=== PATIENT | male | born 1990 | race Caucasian/White ===

== ENCOUNTER 2016-07-29 16:48 | Emergency (ER) | payer MEDICAID ==
[2016-07-29 16:58] VITALS: BP 124/66
== END 2016-07-29 17:35 | disposition left against medical advice (07) ==
LOC: ER 16:48
DX: Z53.21 Procedure and treatment not carried out due to patient leaving prior to being seen by health care provider (principal)

== ENCOUNTER 2017-02-12 16:03 | Emergency (ER) | payer OTHER, MEDICAID ==
[2017-02-12] MEDS ORDERED: OXYCODONE-ACETAMINOPHEN 5-325 MG TABLET PO ONE (16:44)
--- NOTE | 2017-02-12 16:46 | ER Document Report ---
HPI - HPI Patient complains to provider of: Left hand injury Onset: Other - 4 days Onset/Duration: Waxing and waning Quality of pain: Achy Pain Level: 5 Context: Patient states that he was struck by a claw hammer 4 days ago to his left hand. Patient is right-hand dominant. Patient states that each morning his hand is not swollen but gradually through the day he has increased left hand swelling. Patient states his employer is requiring him to come for evaluation. Patient states he has been using his hand while at work despite his recent injury. Patient additionally reports recently getting tattoos to the left forearm. Associated Symptoms: Other - Left hand pain and swelling. denies: Fever Exacerbated by: Movement Relieved by: Denies Similar symptoms previously: No Recently seen / treated by doctor: No - ROS ROS below otherwise negative: Yes Systems Reviewed and Negative: Yes All other systems reviewed and negative - CONSTITUTIONAL Constitutional: DENIES: Fever, Chills - GASTROINTESTINAL Gastrointestinal: DENIES: Nausea - MUSCULOSKELETAL Musculoskeletal: REPORTS: Extremity pain, Swelling - DERM Skin Problems: Abrasion Past Medical History - General Information source: Patient - Social History Smoking Status: Current Every Day Smoker Cigarette use (# per day): Yes Smoking Education Provided: Yes Drug Abuse: None Occupation: Construction Family History: Reviewed & Not Pertinent, Other - asthma Pulmonary Medical History: Reports: Hx Tuberculosis Neurological Medical History: Reports: Hx Migraine, Hx Seizures Renal/ Medical History: Denies: Hx Peritoneal Dialysis GI Medical History: Reports: Hx Hepatitis - C Infectious Medical History: Reports: Hx Hepatitis - C Surgical Hx: Negative - Immunizations Immunizations up to date: Yes Hx Diphtheria, Pertussis, Tetanus Vaccination: Yes - pt states tetanus 2 years ago Vertical Provider Document - CONSTITUTIONAL Agree With Documented VS: Yes Exam Limitations: No Limitations General Appearance: WD/WN, No Apparent Distress - INFECTION CONTROL TRAVEL OUTSIDE OF THE [place] IN LAST 30 DAYS: No - HEENT HEENT: Atraumatic, Normocephalic - NECK Neck: Normal Inspection - RESPIRATORY Respiratory: No Respiratory Distress O2 Sat by Pulse Oximetry: 99 - CARDIOVASCULAR Pulses: Normal: Radial - MUSCULOSKELETAL/EXTREMETIES Musculoskeletal/Extremeties: MAEW, Tender - left hand tenderness, swelling to left 2/3rd MC, Edema, Eccymosis - NEURO Level of Consciousness: Awake, Alert, Appropriate Motor/Sensory: No Motor Deficit, No Sensory Deficit - DERM Integumentary: Warm, Dry Notes: abrasion to dorsal aspect of left hand, bruising to the dorsal aspect of left hand Patient with mild erythema extending from recent tattoos to left forearm Course - Vital Signs Vital signs: Temp Pulse Resp BP Pulse Ox 99.3 F 79 16 131/82 H 99 02/12/17 16:08 02/12/17 16:08 02/12/17 16:08 02/12/17 16:08 02/12/17 16:08 - Diagnostic Test Radiology reviewed: Image reviewed, Reports reviewed Discharge - Discharge Clinical Impression: Cellulitis of forearm, left Hand contusion Qualifiers: Encounter type: initial encounter Laterality: left Qualified Code(s): S60.222A - Contusion of left hand, initial encounter Condition: Stable Disposition: HOME, SELF-CARE Instructions: Tereso Wrap ([facility]), Cellulitis ([facility]), Cephalexin ([facility]), Contusion ( [facility]), Elevate the Injury ([facility]) Additional Instructions: Return immediately for any new or worsening symptoms Followup with your primary care provider, call tomorrow to make a followup appointment Follow-up with orthopedic hand specialist for any continued pain or problem Prescriptions: Cephalexin Monohydrate [Keflex 500 mg Capsule] 500 mg PO Q6H 5 Days capsule Naproxen [Naprosyn 250 Nmg Tablet] 1 tab PO BID #14 tablet Forms: Smoking Cessation Education, Return to Work Referrals: NATALIE RODRIGUEZ DO [ACTIVE STAFF] - Follow up as needed
--- NOTE | 2017-02-12 17:10 | RADIOLOGY REPORT (SQ) ---
EXAM DESCRIPTION: HAND LEFT 3 VIEWS COMPLETED DATE/TIME: 02/12/2017 4:55 pm REASON FOR STUDY: hand hit with hammer COMPARISON: None. EXAM PARAMETERS: NUMBER OF VIEWS: Three views. TECHNIQUE: AP, lateral and oblique radiographic images acquired of the left hand. LIMITATIONS: None. FINDINGS: MINERALIZATION: Normal. BONES: No acute fracture or dislocation. No worrisome bone lesions. JOINTS: No effusions. SOFT TISSUES: No soft tissue swelling. No foreign body. OTHER: No other significant finding. IMPRESSION: NEGATIVE STUDY OF THE LEFT HAND. NO RADIOGRAPHIC EVIDENCE OF ACUTE INJURY. TECHNICAL DOCUMENTATION: JOB ID: [id number] [employer]- All Rights Reserved
[2017-02-12] MEDS ORDERED: CEPHALEXIN 500 MG CAPSULE PO ONE (17:22)
[2017-02-12 17:45] VITALS: BP 138/76
== END 2017-02-12 17:49 | disposition home or self-care (01) ==
LOC: ER 16:03
DX: S60.222A Contusion of left hand, initial encounter (principal); W27.8XXA Contact with other nonpowered hand tool, initial encounter; Y99.0 Civilian activity done for income or pay; L03.114 Cellulitis of left upper limb; F17.210 Nicotine dependence, cigarettes, uncomplicated
CPT/HCPCS: 99283

== ENCOUNTER 2017-10-23 18:23 | Emergency (ER) | payer MEDICAID ==
[2017-10-23] MEDS ORDERED: RINGERS SOLUTION,LACTATED 1,000 ML IV ONE (19:29)
[2017-10-23] MEDS ORDERED: NORMAL SALINE 1000 ML 1,000 ML IV PRN (19:29)
--- NOTE | 2017-10-23 19:31 | ER Document Report ---
ED Medical Screen (RME) - General Chief Complaint: Nausea/Vomiting Stated Complaint: VOMITING/SYNCOPE Time Seen by Provider: 10/23/17 19:29 Notes: 26 years old male working the whole of yesterday in the hot sun temperature around 97, and work today until this afternoon, passed out therefore brought to the ED. TRAVEL OUTSIDE OF THE [place] IN LAST 30 DAYS: No - Related Data Allergies/Adverse Reactions: Penicillins Allergy (Verified 10/23/17 18:25) Past Medical History - Social History Frequency of alcohol use: None Drug Abuse: None Pulmonary Medical History: Reports: Hx Tuberculosis Neurological Medical History: Reports: Hx Migraine, Hx Seizures Renal/ Medical History: Denies: Hx Peritoneal Dialysis GI Medical History: Reports: Hx Hepatitis - C Infectious Medical History: Reports: Hx Hepatitis - C - Immunizations Immunizations up to date: Yes Hx Diphtheria, Pertussis, Tetanus Vaccination: Yes - pt states tetanus 2 years ago Physical Exam - Vital signs Vitals: Temp Pulse Resp BP Pulse Ox 98.3 F 84 18 151/77 H 97 10/23/17 18:32 10/23/17 18:32 10/23/17 18:32 10/23/17 18:32 10/23/17 18:32 Course - Vital Signs Vital signs: Temp Pulse Resp BP Pulse Ox 98.3 F 84 18 151/77 H 97 10/23/17 18:32 10/23/17 18:32 10/23/17 18:32 10/23/17 18:32 10/23/17 18:32
[2017-10-23 20:32] LABS: ABSOLUTE LYMPHOCYTES (AUTO) 2.4 10^3/uL (0.5-4.7); ABSOLUTE MONOCYTES (AUTO) 1.1 10^3/uL (0.1-1.4); ABSOLUTE NEUT (AUTO) 8.8 10^3/uL (1.7-8.2); BASOPHILS % (AUTO) 0.1 % (0-2); EOSINOPHILS % (AUTO) 0.2 % (0-6); HEMATOCRIT 51.1 % (37.9-51.0); HEMOGLOBIN 18.1 g/dL (13.5-17.0); LYMPHOCYTES % (AUTO) 19.6 % (13-45); MEAN CORPUSCULAR HEMOGLOBIN 30.9 pg (27.0-33.4); MEAN CORPUSCULAR HGB CONC 35.5 g/dL (32.0-36.0); MEAN CORPUSCULAR VOLUME 87 fl (80-97); MONOCYTES % (AUTO) 8.8 % (3-13); PLATELET COUNT 277 10^3/uL (150-450); RED BLOOD COUNT 5.86 10^6/uL (4.35-5.55); RED CELL DISTRIBUTION WIDTH 13.1 % (11.5-14.0); SEGMENTED NEUTROPHILS % (AUTO) 71.3 % (42-78); TOTAL CELLS COUNTED % (AUTO) 100 %; WHITE BLOOD COUNT 12.3 10^3/uL (4.0-10.5)
[2017-10-23 20:54] LABS: ALANINE AMINOTRANSFERASE 112 U/L (21-72); ALBUMIN 5.8 g/dL (3.5-5.0); ALKALINE PHOSPHATASE 82 U/L (38-126); ASPARTATE AMINO TRANSFERASE 71 U/L (17-59); BILIRUBIN,DIRECT 0.5 mg/dL (0.0-0.4); BILIRUBIN,TOTAL 0.9 mg/dL (0.2-1.3); BLOOD UREA NITROGEN 40 mg/dL (7-20); CALCIUM 10.4 mg/dL (8.4-10.2); CREATINE KINASE 748 U/L (55-170); GLUCOSE 113 mg/dL (75-110); TOTAL PROTEIN 10.5 g/dL (6.3-8.2)
[2017-10-23 20:59] LABS: CARBON DIOXIDE 28 mmol/L (22-30); CHLORIDE 89 mmol/L (98-107); SODIUM 137.5 mmol/L (137-145)
[2017-10-23 21:00] LABS: ANION GAP 21 (5-19)
--- NOTE | 2017-10-23 21:17 | EKG REPORT ---
SEVERITY:- OTHERWISE NORMAL ECG - SINUS RHYTHM ATRIAL PREMATURE COMPLEX : Confirmed by: Floyd Narvaez MD 23-Oct-2017 21:17:26
[2017-10-23] MEDS ORDERED: NORMAL SALINE 1000 ML 1,000 ML IV ONE ×2 (21:31→22:20)
[2017-10-23 21:34] LABS: APPEARANCE,URINE CLOUDY; BILIRUBIN,URINE NEGATIVE (NEGATIVE); GLUCOSE, URINE NEGATIVE (NEGATIVE); KETONES,URINE TRACE mg/dL (NEGATIVE); LEUKOCYTE ESTERASE,URINE NEGATIVE (NEGATIVE); NITRITE,URINE NEGATIVE (NEGATIVE); PROTEIN,URINE 100 mg/dL (NEGATIVE)
[2017-10-23 21:35] LABS: COLOR,URINE YELLOW
[2017-10-23 23:31] LABS: ALANINE AMINOTRANSFERASE 84 U/L (21-72); ALBUMIN 4.1 g/dL (3.5-5.0); ALKALINE PHOSPHATASE 58 U/L (38-126); ANION GAP 12 (5-19); ASPARTATE AMINO TRANSFERASE 49 U/L (17-59); BILIRUBIN,DIRECT 0.3 mg/dL (0.0-0.4); BILIRUBIN,TOTAL 0.8 mg/dL (0.2-1.3); BLOOD UREA NITROGEN 32 mg/dL (7-20); CALCIUM 8.4 mg/dL (8.4-10.2); CARBON DIOXIDE 26 mmol/L (22-30); CHLORIDE 100 mmol/L (98-107); CREATINE KINASE 567 U/L (55-170); GLUCOSE 107 mg/dL (75-110); POTASSIUM 3.4 mmol/L (3.6-5.0); SODIUM 137.5 mmol/L (137-145); TOTAL PROTEIN 7.1 g/dL (6.3-8.2)
[2017-10-23] MEDS ORDERED: ONDANSETRON ODT 4 MG TAB (6 TAB/ER DISP) PO PRN (23:57)
--- NOTE | 2017-10-24 00:01 | ER Document Report ---
ED General - General Chief Complaint: Nausea/Vomiting Stated Complaint: VOMITING/SYNCOPE Time Seen by Provider: 10/23/17 19:29 Mode of Arrival: Ambulatory Information source: Patient Notes: Patient with complaints of vomiting, muscle cramps and feeling dehydrated after working out in the heat all day. TRAVEL OUTSIDE OF THE [place] IN LAST 30 DAYS: No - Related Data Allergies/Adverse Reactions: Penicillins Allergy (Verified 10/23/17 18:25) Past Medical History - General Information source: Patient - Social History Smoking Status: Current Every Day Smoker Frequency of alcohol use: None Drug Abuse: None Family History: Reviewed & Not Pertinent, Other - asthma Patient has suicidal ideation: No Patient has homicidal ideation: No Pulmonary Medical History: Reports: Hx Tuberculosis Neurological Medical History: Reports: Hx Migraine, Hx Seizures Renal/ Medical History: Denies: Hx Peritoneal Dialysis GI Medical History: Reports: Hx Hepatitis - C Infectious Medical History: Reports: Hx Hepatitis - C Surgical Hx: Negative - Immunizations Immunizations up to date: Yes Hx Diphtheria, Pertussis, Tetanus Vaccination: Yes - pt states tetanus 2 years ago Review of Systems - Review of Systems Constitutional: Weakness EENT: No symptoms reported Cardiovascular: Lightheaded Respiratory: No symptoms reported Gastrointestinal: Vomiting Genitourinary: No symptoms reported Male Genitourinary: No symptoms reported Musculoskeletal: Muscle pain Skin: No symptoms reported Hematologic/Lymphatic: No symptoms reported Neurological/Psychological: No symptoms reported Physical Exam - Vital signs Vitals: Temp Pulse Resp BP Pulse Ox 98.3 F 84 18 151/77 H 97 10/23/17 18:32 10/23/17 18:32 10/23/17 18:32 10/23/17 18:32 10/23/17 18:32 - Notes Notes: PHYSICAL EXAMINATION: GENERAL: Moderately ill appearing, well-nourished and in no acute distress. HEAD: Atraumatic, normocephalic. EYES: Pupils equal round and reactive to light, extraocular movements intact, sclera anicteric, conjunctiva are normal. ENT: nares patent, oropharynx clear without exudates. Moist mucous membranes. NECK: Normal range of motion, supple without lymphadenopathy LUNGS: Breath sounds clear to auscultation bilaterally and equal. No wheezes rales or rhonchi. HEART: Regular rate and rhythm without murmurs ABDOMEN: Soft, nontender, normoactive bowel sounds. No guarding, no rebound. No masses appreciated. EXTREMITIES: Normal range of motion, no pitting or edema. No cyanosis. NEUROLOGICAL: No focal neurological deficits. Moves all extremities spontaneously and on command. PSYCH: Normal mood, normal affect. SKIN: Warm, Dry, normal turgor, no rashes or lesions noted. Course - Re-evaluation Re-evalutation: Initial workup reveals a CBC with a white blood count of 12.3, with left shift. Hemoglobin and hematocrit are unremarkable. Comprehensive metabolic panel with an anion gap of 21, BUN 40, creatinine 1.34, AST 71, ALT 112, CK 748. Urinalysis with proteinuria and trace ketones no nitrates or leukocyte Estrace. Patient reports that he has not had many p.o. fluids over the last couple of days as and has been out in the sun working. Will hydrate patient with total of 3 L and recheck a chemistry and CK. Patient reports significant improvement in his systems after IV fluid hydration. Repeat comprehensive metabolic panel much improved. Anion gap is 12 , BUN 32, creatinine 0.93, AST 49, ALT 84, CK 567. Patient has had no vomiting while in the department. Patient's vital signs remained stable. Patient will be discharged at this time, patient encouraged to stay hydrated if he has to be out in the sun, return for any worsening symptoms or development of fever. - Vital Signs Vital signs: Temp Pulse Resp BP Pulse Ox 98.3 F 96 18 116/54 L 96 10/23/17 20:34 10/24/17 00:13 10/24/17 00:13 10/24/17 00:13 10/24/17 00:13 - Laboratory Result Diagrams: 10/23/17 20:12 10/23/17 23:05 Laboratory results interpreted by me: 10/23/17 10/23/17 10/23/17 20:12 20:12 21:10 WBC 12.3 H RBC 5.86 H Hgb 18.1 H Hct 51.1 H Absolute Neutrophils 8.8 H Potassium Chloride 89 L Anion Gap 21 H BUN 40 H Creatinine 1.34 H Glucose 113 H Calcium 10.4 H Direct Bilirubin 0.5 H AST 71 H ALT 112 H Creatine Kinase 748 H Total Protein 10.5 H Albumin 5.8 H Urine Protein 100 H Urine Ketones TRACE H Urine Urobilinogen 2.0 H 10/23/17 23:05 WBC RBC Hgb Hct Absolute Neutrophils Potassium 3.4 L Chloride Anion Gap BUN 32 H Creatinine Glucose Calcium Direct Bilirubin AST ALT 84 H Creatine Kinase 567 H Total Protein Albumin Urine Protein Urine Ketones Urine Urobilinogen - EKG Interpretation by Me EKG shows normal: Sinus rhythm Rate: Normal Discharge - Discharge Clinical Impression: Acute kidney injury, Elevated CK, Dehydration Condition: Stable Disposition: HOME, SELF-CARE Additional Instructions: Dehydration Dehydration can result from vomiting or diarrhea, fever, or decreased intake of fluids. If severe, hospitalization and intravenous fluids may be required. Most cases are treated at home with fluids by mouth. For the next 24 hours, drink lots of clear fluids. In mild cases, this can be soda pop or sports drinks. For more severe dehydration, the doctor may recommend special fluids such as Pedialyte or Lytren. Try to get three liters ( 3 quarts) of fluid per day. If vomiting occurs, continue to drink the fluids frequently (every 15 to 20 minutes), but in small amounts (one or two ounces). Depending on the type of dehydration, the doctor may prescribe antinausea medicine or potassium replacements. Call the doctor or return for re-examination if you become progressively weak, vomit repeatedly, or have other new symptoms. Intravenous (IV) Fluids As part of your care today, you received intravenous (IV) fluids. IV fluids are administered to patients who are dehydrated or to those who have certain chemical (electrolyte) abnormalities that need correcting. Your lab work improved significantly after hydration with IV fluids. Please use the Zofran as needed for nausea. Please drink plenty of fluids over the next several days, water is best. Please try to stay hydrated while working out in the sun. Please return to the emergency department if you experience similar symptoms again. We are happy to reevaluate you. Prescriptions: Ondansetron [Zofran Odt 4 mg Tablet] 1 - 2 tab PO Q4H PRN #15 tab.rapdis PRN Reason: For Nausea/Vomiting Forms: Return to Work
[2017-10-24 00:14] VITALS: BP 116/54
== END 2017-10-24 00:14 | disposition home or self-care (01) ==
LOC: ER 18:23
DX: N17.9 Acute kidney failure, unspecified (principal); E86.0 Dehydration; R94.4 Abnormal results of kidney function studies; R11.2 Nausea with vomiting, unspecified; R53.1 Weakness; R25.2 Cramp and spasm; F17.200 Nicotine dependence, unspecified, uncomplicated; Z86.19 Personal history of other infectious and parasitic diseases
CPT/HCPCS: 93005; 99284; 96360; 96361; 36415; 82550; 85025; 80053; 81001; 93010; J7030; J7120

== ENCOUNTER 2018-01-24 13:48 | Emergency (ER) | payer SELFPAY ==
[2018-01-24 13:56] VITALS: BP 134/70
[2018-01-24] MEDS ORDERED: HYDROCODONE/ACETAMINOPHEN 10-325 MG TABLET PO ONE (14:35)
--- NOTE | 2018-01-24 14:47 | ER Document Report ---
HPI - HPI Patient complains to provider of: puncture wound Time Seen by Provider: 01/24/18 14:29 Pain Level: 2 Context: Patient is a 27-year-old male presenting to the emergency department for a puncture wound to the left thenar eminence. Patient states he was working on a roof using a nail gun when he attempted to nail a piece of wood to the roof and the nail gun went through the board and into his left thumb. Patient states that his boss was able to remove the nail and subsequent piece of wood that was connected to his hand and he immediately presented to the emergency room. Patient states his last tetanus was 2 years ago. Patient is denying any other injuries to the fluid falling off the roof any head, neck, back pain. Past medical history: Hepatitis C Medications: None Allergies: PCN Surgical history: None Patient admits to cigarette smoking, denies illicit drug use, denies EtOH use. Past Medical History - General Information source: Patient - Social History Smoking Status: Current Every Day Smoker Lives with: Family Family History: Reviewed & Not Pertinent, Other - asthma Pulmonary Medical History: Reports: Hx Tuberculosis Neurological Medical History: Reports: Hx Migraine, Hx Seizures Renal/ Medical History: Denies: Hx Peritoneal Dialysis GI Medical History: Reports: Hx Hepatitis - C Infectious Medical History: Reports: Hx Hepatitis - C - Immunizations Immunizations up to date: Yes Hx Diphtheria, Pertussis, Tetanus Vaccination: Yes - pt states tetanus 2 years ago Vertical Provider Document - CONSTITUTIONAL Agree With Documented VS: Yes Notes: GENERAL: Alert, interacts well. No acute distress. HEAD: Normocephalic, atraumatic. EYES: Pupils equal, round, and reactive to light. Extraocular movements intact. ENT: Oral mucosa moist, tongue midline. NECK: Full range of motion. Supple. Trachea midline. LUNGS: Clear to auscultation bilaterally, no wheezes, rales, or rhonchi. No respiratory distress. HEART: Regular rate and rhythm. No murmur ABDOMEN: Soft, non-tender. Non-distended. Bowel sounds present in all 4 quadrants. EXTREMITIES: Moves all 4 extremities spontaneously. No edema, normal radial and dorsalis pedis pulses bilaterally. No cyanosis. BACK: no cervical, thoracic, lumbar midline tenderness. No saddle anesthesia, normal distal neurovascular exam. NEUROLOGICAL: Alert and oriented x3. Normal speech. cranial nerves II through XII grossly intact PSYCH: Normal affect, normal mood. SKIN: Warm, dry, normal turgor. Patient has a small puncture wound on the lateral aspect below the MCP joint of the left thumb. Patient states pain is more so located in his thenar eminence which has minor swelling. Patient is able to abduct and adduct all 5 fingers on the left hand against resistance., Ulnar, medial, radial nerves are intact. - INFECTION CONTROL TRAVEL OUTSIDE OF THE [place] IN LAST 30 DAYS: No Course - Re-evaluation Re-evalutation: 01/24/18 15:49 Small foreign body seen on x-ray. Due to patient's puncture wound being so small I would have to numb the area and make a larger incision to explore the wound. Discussed with patient and prophylactic antibiotics, follow-up with orthopedics Dr. Rodriguez and close precautions with his primary care provider. Discussed foreign body will potentially remove itself from the patient's body. Discussed at length signs of infection and when to return to the emergency room. - Vital Signs Vital signs: Temp Pulse Resp BP Pulse Ox 98.4 F 71 18 134/70 H 96 01/24/18 13:53 01/24/18 13:53 01/24/18 13:53 01/24/18 13:53 01/24/18 13:53 Discharge - Discharge Clinical Impression: Puncture wound, Retained foreign body Condition: Stable Disposition: HOME, SELF-CARE Instructions: Puncture Wound ([facility]) Additional Instructions: As we discussed you have been seen and treated in the emergency department for a puncture wound and a retained foreign body. If I were to explore the wound I would do more damage than good at this point. Please take antibiotics as prescribed. Please return to the emergency room for any other concerning symptoms. Please follow-up with Dr. robertson with orthopedic hand specialist. Please also follow-up with your primary care provider. If you develop any signs of infection please return to the emergency room immediately. Prescriptions: Cephalexin Monohydrate [Keflex 500 mg Capsule] 500 mg PO BID 7 Days #14 capsule Referrals: NATALIE RODRIGUEZ DO [ACTIVE STAFF] - Follow up as needed
--- NOTE | 2018-01-24 15:29 | RADIOLOGY REPORT (SQ) ---
EXAM DESCRIPTION: HAND LEFT 3 VIEWS COMPLETED DATE/TIME: 01/24/2018 3:09 pm REASON FOR STUDY: nail gun accident COMPARISON: None. EXAM PARAMETERS: NUMBER OF VIEWS: Three views. TECHNIQUE: AP, lateral and oblique radiographic images acquired of the left hand. LIMITATIONS: None. FINDINGS: MINERALIZATION: Normal. BONES: No acute fracture or dislocation. No worrisome bone lesions. JOINTS: No effusions. SOFT TISSUES: There is a radio-opaque foreign body in relation to the 1st meta carpal. Is not metall ic. Possibly spur splinter or glass. OTHER: No other significant finding. IMPRESSION: Radio-opaque foreign body, not metallic, in relation to the 1st metacarpal. No fracture . TECHNICAL DOCUMENTATION: JOB ID: [id number] [employer]- All Rights Reserved Reading location - IP/workstation name: [email or web address]
== END 2018-01-24 16:01 | disposition home or self-care (01) ==
LOC: ER 13:48
DX: S61.032A Puncture wound without foreign body of left thumb without damage to nail, initial encounter (principal); F17.210 Nicotine dependence, cigarettes, uncomplicated; W45.0XXA Nail entering through skin, initial encounter; W29.4XXA Contact with nail gun, initial encounter; Z86.19 Personal history of other infectious and parasitic diseases
CPT/HCPCS: 99283

== ENCOUNTER 2018-09-11 09:32 | Emergency (ER) | payer MEDICAID ==
[2018-09-11 09:51] VITALS: BP 120/68
== END 2018-09-11 10:25 | disposition left against medical advice (07) ==
LOC: ER 09:32
DX: Z53.21 Procedure and treatment not carried out due to patient leaving prior to being seen by health care provider (principal)

== ENCOUNTER 2019-04-19 07:58 | Emergency (ER) | payer SELFPAY ==
[2019-04-19] MEDS ORDERED: CEFTRIAXONE 1 GM/D5W RTU 1 GM/50 ML RTUPB IV ONE (08:40)
[2019-04-19] MEDS ORDERED: DIPH/PERTUSS(ACELL)/TETANUS VAC/PF 0.5 ML SYR (>=10YO) IM ONE (09:22)
--- NOTE | 2019-04-19 09:23 | RADIOLOGY REPORT (SQ) ---
EXAM DESCRIPTION: HAND BILATERAL 3 VIEWS COMPLETED DATE/TIME: 04/19/2019 9:09 am REASON FOR STUDY: F/o fb, osteo.cellulitis in L hand,steel frag in R COMPARISON: Bilateral hand films 05/27/2012 EXAM PARAMETERS: NUMBER OF VIEWS: Three views. TECHNIQUE: AP, lateral and oblique radiographic images acquired of the right and left hand. LIMITATIONS: None. FINDINGS: MINERALIZATION: Normal. BONES: No acute fracture or dislocation. No worrisome bone lesions. JOINTS: No effusions. SOFT TISSUES: Left hand soft tissue swelling and lacerations along the left index and middle finger. No radiopaque foreign body in the right or left hand. OTHER: No other significant finding. IMPRESSION: Three views right hand unremarkable Left hand three views demonstrates a soft tissue defect in the left index finger and middle finger wi thout radiopaque foreign body or underlying aggressive bony demineralization. TECHNICAL DOCUMENTATION: JOB ID: [id number] [employer]- All Rights Reserved Reading location - IP/workstation name: [email or web address]
[2019-04-19 09:24] LABS: ABSOLUTE EOSINOPHILS # (AUTO) 0.2 10^3/uL (0.0-0.6); ABSOLUTE LYMPHOCYTES (AUTO) 2.2 10^3/uL (0.5-4.7); ABSOLUTE NEUT (AUTO) 9.2 10^3/uL (1.7-8.2); BASOPHILS % (AUTO) 0.2 % (0-2); EOSINOPHILS % (AUTO) 1.4 % (0-6); HEMATOCRIT 46.6 % (37.9-51.0); HEMOGLOBIN 16.5 g/dL (13.5-17.0); LYMPHOCYTES % (AUTO) 17.6 % (13-45); MEAN CORPUSCULAR HEMOGLOBIN 31.3 pg (27.0-33.4); MEAN CORPUSCULAR HGB CONC 35.5 g/dL (32.0-36.0); MEAN CORPUSCULAR VOLUME 88 fl (80-97); MONOCYTES % (AUTO) 7.9 % (3-13); PLATELET COUNT 292 10^3/uL (150-450); RED BLOOD COUNT 5.29 10^6/uL (4.35-5.55); RED CELL DISTRIBUTION WIDTH 13.5 % (11.5-14.0); SEGMENTED NEUTROPHILS % (AUTO) 72.9 % (42-78); TOTAL CELLS COUNTED % (AUTO) 100 %; WHITE BLOOD COUNT 12.6 10^3/uL (4.0-10.5)
--- NOTE | 2019-04-19 09:39 | ER Document Report ---
ED General - General Chief Complaint: Wound Infection Stated Complaint: POSSIBLE FINGER INFECTION Time Seen by Provider: 04/19/19 08:17 Primary Care Provider: SABIHA BROCK MD [COMMUNITY BASED STAFF] - Follow up as needed NATALIE RODRIGUEZ DO [ACTIVE STAFF] - Follow up as needed TRAVEL OUTSIDE OF THE [place] 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 Denies any fevers or chills, states pain is 5 out of 10, throbbing achy. Has not tried any omsl-hly-vxtkopk medications. Worse with time, nothing makes better. Patient is unsure when his last tetanus shot was. Patient states that he picked flecks of steel out of his right hand a couple of days ago. Denies history of MRSA. denies fevers, chills, chest pain,palpitations, shortness of breath, dyspnea, nausea, vomiting, diarrhea, abdominal pain, hematuria,blurred vision, double vision, loss of vision, speech changes, LH, dizziness, syncope, headaches, wheezing, ST, URI, neck pain, weakness, bowel or bladder dysfunction, saddle anesthesia, numbness or tingling in bilateral upper or lower extremities equally, muscle paralysis, weakness in bilateral upper or lower extremities equally or rash. - Related Data Allergies/Adverse Reactions: Penicillins Allergy (Verified 04/19/19 08:09) Past Medical History - General Information source: Patient - Social History Smoking Status: Current Every Day Smoker Chew tobacco use (# tins/day): No Frequency of alcohol use: None Drug Abuse: None Family History: Reviewed & Not Pertinent, Other - asthma Patient has suicidal ideation: No Patient has homicidal ideation: No Pulmonary Medical History: Reports: Hx Tuberculosis - carrier Neurological Medical History: Reports: Hx Migraine, Hx Seizures - at age of 4 Renal/ Medical History: Denies: Hx Peritoneal Dialysis GI Medical History: Reports: Hx Hepatitis - C Infectious Medical History: Reports: Hx Hepatitis - C - Immunizations Immunizations up to date: Yes Hx Diphtheria, Pertussis, Tetanus Vaccination: Yes - pt states tetanus 2 years ago Review of Systems - Review of Systems Constitutional: No symptoms reported EENT: No symptoms reported Cardiovascular: No symptoms reported Respiratory: No symptoms reported Gastrointestinal: No symptoms reported Genitourinary: No symptoms reported Male Genitourinary: No symptoms reported Musculoskeletal: No symptoms reported Skin: See HPI Hematologic/Lymphatic: No symptoms reported Neurological/Psychological: No symptoms reported Physical Exam - Vital signs Vitals: Temp Pulse Resp BP Pulse Ox 97.5 F 80 16 135/76 H 100 04/19/19 08:02 04/19/19 08:02 04/19/19 08:02 04/19/19 08:02 04/19/19 08:02 - Notes Notes: PHYSICAL EXAMINATION:reviewed vital signs by RN GENERAL: Well-appearing, well-nourished and in no acute distress. HEAD: Atraumatic, normocephalic. EYES: Pupils equal round and reactive to light, extraocular movements intact, sclera anicteric, conjunctiva are normal. ENT: Nares patent, oropharynx clear without exudates. Moist mucous membranes. NECK: Normal range of motion, supple without lymphadenopathy LUNGS: Breath sounds clear to auscultation bilaterally and equal. No wheezes rales or rhonchi. HEART: Regular rate and rhythm without murmurs ABDOMEN: Soft, nontender, nondistended abdomen. No guarding, no rebound. No masses appreciated. Musculoskeletal: Normal range of motion, no pitting or edema. No cyanosis. NEUROLOGICAL: Cranial nerves grossly intact. Normal speech, normal gait. Normal sensory, motor exams PSYCH: Normal mood, normal affect. SKIN: Warm, Dry, normal turgor, no rashes or lesions noted. Pain to left second phalange due to wound to left medial aspect of phalange approx 1cmx 0.5cm. Erythema to left index finger that extends partially up to right dorsal aspect of hand with noted streaking. no pain to wrist with flexion, extension, inversion, eversion of wrist. digits in right and left with full aprom. Guest Advisor + 2 BUE equally. Snuffbox tenderness negative on right and left. radial pulses + 2 BUE equally. Negative kanavels sign bilaterally. No open wounds or drainage from wrist. No vascular compromise.No body crepitus or focal area of TTP. no pain with opposition, flexion, extension, abduction and adduction on right or left hand. Motor and sensory function of ulnar, radial, medial nerves intact bilaterally and equally. strength 5/5 in BUE equally. Course - Re-evaluation Re-evalutation: 04/19/19 14:32 Afebrile vital stable no distress. Nurse's notes reviewed. CBC shows a very slight elevation with leukocytosis at 12.6, CMP negative for hepatic or renal dysfunction, electrolyte disturbances. Lactic acid was 0.8, unremarkable. X- ray negative for any foreign bodies fractures, no osteomyelitis seen on the right and left however his left hand does show some soft tissue defect from woun d on left medial aspect of left index finger. Patient's tetanus has been updated. Patient was given 1 g Rocephin IV. Patient does not appear to have any signs or symptoms of tenosynovitis, negative Kyra sign bilaterally. Area of erythema to dorsal aspect of left hand marked tendon dated. Advised patient that if redness extends as marked area by 1 cm to return to the emergency room immediately for further evaluation. Patient will be discharged with Keflex and Bactrim for 10-day therapy as well as naproxen for pain control. Advised apply heat 20 minutes on 20 minutes off several times a day. after performing a Medical Screening Examination, I estimate there is LOW risk for OPEN FRACTURE, COMPARTMENT SYNDROME, TENDON RUPTURE, ACUTE NEUROVASCULAR INJURY, or RETAINED FOREIGN BODY, thus I consider the discharge disposition reasonable. Also, there is no evidence or peritonitis, sepsis, or toxicity. I have reevaluated this patient multiple times and no significant life threatening changes are noted. The patient and I have discussed the diagnosis and risks, and we agree with discharging home with close follow-up with the understanding that symptoms and presentations can change. We also discussed returning to the Emergency Department immediately if new or worsening symptoms occur. We have discussed the symptoms which are most concerning (e.g., changing or worsening pain, fever, numbness, weakness, cool or painful digits) that necessitate immediate return. - Vital Signs Vital signs: Temp Pulse Resp BP Pulse Ox 98.6 F 74 14 123/77 96 04/19/19 11:05 04/19/19 11:05 04/19/19 11:05 04/19/19 11:05 04/19/19 11:05 - Laboratory Result Diagrams: 04/19/19 09:08 04/19/19 09:08 Laboratory results interpreted by me: 04/19/19 04/19/19 09:08 09:08 WBC 12.6 H Absolute Neuts (auto) 9.2 H Total Protein 8.3 H Discharge - Discharge Clinical Impression: Cellulitis of hand Condition: Stable Disposition: HOME, SELF-CARE Instructions: Laceration Care (OM), Prophylactic Antibiotic (OM), Soap Cleansing (OM), Tetanus Immunization Given ([facility]) Additional Instructions: X-ray of your bilateral hands were negative for any foreign body or bone infection. Your labs looked normal. You were given a tetanus immunization today. you were We will start you on antibiotic therapy, please take Bactrim and Keflex twice a day for 10 days to help with infection. Alternate between Tylenol and naproxen for pain control. If redness extends out of marked area, please return to the emergency room. Apply heat 20 minutes on 20 minutes off several times a day to help with infection. Work note has been given until Friday. If your symptoms become worse such as high fever, worsening pain, redness extending out of marked area please return to the emergency room for further management of your symptoms. Prescriptions: Sulfamethoxazole/Trimethoprim [Bactrim Ds Tablet] 1 each PO BID #20 tablet Cephalexin Monohydrate [Keflex 500 mg Capsule] 500 mg PO BID #20 capsule Naproxen 500 mg PO BID #10 tablet Forms: Return to Work Referrals: SABIHA BROCK MD [COMMUNITY BASED STAFF] - Follow up as needed NATALIE RODRIGUEZ DO [ACTIVE STAFF] - Follow up as needed
[2019-04-19 10:15] LABS: ALBUMIN 4.7 g/dL (3.5-5.0); ALKALINE PHOSPHATASE 73 U/L (38-126); ANION GAP 10 (5-19); ASPARTATE AMINO TRANSFERASE 36 U/L (17-59); BILIRUBIN,DIRECT 0.1 mg/dL (0.0-0.4); BILIRUBIN,TOTAL 1.3 mg/dL (0.2-1.3); BLOOD UREA NITROGEN 16 mg/dL (7-20); CALCIUM 9.9 mg/dL (8.4-10.2); CARBON DIOXIDE 27 mmol/L (22-30); CHLORIDE 102 mmol/L (98-107); GLUCOSE 100 mg/dL (75-110); POTASSIUM 4.3 mmol/L (3.6-5.0); TOTAL PROTEIN 8.3 g/dL (6.3-8.2)
[2019-04-19 11:08] VITALS: BP 123/77
== END 2019-04-19 11:08 | disposition home or self-care (01) ==
LOC: ER 07:58
DX: L03.114 Cellulitis of left upper limb (principal); M79.89 Other specified soft tissue disorders; Z23 Encounter for immunization; Z86.19 Personal history of other infectious and parasitic diseases
CPT/HCPCS: 36415; 87040; 83605; 85025; 80053; 73130; 90715; J0696

== ENCOUNTER 2019-05-02 15:19 | Emergency (ER) | payer SELFPAY ==
--- NOTE | 2019-05-02 16:21 | ER Document Report ---
ED Medical Screen (RME) - General Chief Complaint: Headache Stated Complaint: SEEING THINGS/LOSS OF FEELING IN HANDS/TIRED/HEADA Time Seen by Provider: 05/02/19 16:18 Mode of Arrival: Ambulatory Information source: Patient Notes: 28-year-old male patient presenting with a multitude of complaints today. Patient reports over the last 2 weeks he has had a severe headache, numbness in his fingers, altered mental status at times, and confusion. Patient does report a recent abscess on his finger that he came to the emergency department for but did not have his antibiotics filled for. He reports intermittent fevers over the last 2 weeks as well. Patient alert, oriented, answering all questions appropriately, no focal neurological deficits noted. I have greeted and performed a rapid initial assessment of this patient. A comprehensive ED assessment and evaluation of the patient, analysis of test results and completion of the medical decision making process will be conducted by additional ED providers. I have specifically instructed the patient or family members with the patient to immediately return to any nursing staff should anything change in the patient's condition or with their chief complaint. TRAVEL OUTSIDE OF THE [place] IN LAST 30 DAYS: No - Related Data Allergies/Adverse Reactions: Penicillins Allergy (Verified 04/19/19 08:09) Past Medical History Pulmonary Medical History: Reports: Hx Tuberculosis - carrier Neurological Medical History: Reports: Hx Migraine, Hx Seizures - at age of 4 Renal/ Medical History: Denies: Hx Peritoneal Dialysis GI Medical History: Reports: Hx Hepatitis - C Infectious Medical History: Reports: Hx Hepatitis - C - Immunizations Immunizations up to date: Yes Hx Diphtheria, Pertussis, Tetanus Vaccination: Yes - pt states tetanus 2 years ago Physical Exam - Vital signs Vitals: Temp Pulse Resp BP Pulse Ox 98.1 F 80 16 131/83 H 97 05/02/19 15:59 05/02/19 15:59 05/02/19 15:59 05/02/19 15:59 05/02/19 15:59 Course - Vital Signs Vital signs: Temp Pulse Resp BP Pulse Ox 98.1 F 80 16 131/83 H 97 05/02/19 15:59 05/02/19 15:59 05/02/19 15:59 05/02/19 15:59 05/02/19 15:59
[2019-05-02 17:13] LABS: APPEARANCE,URINE CLEAR; BILIRUBIN,URINE NEGATIVE (NEGATIVE); COLOR,URINE YELLOW; GLUCOSE, URINE NEGATIVE (NEGATIVE); KETONES,URINE NEGATIVE (NEGATIVE); LEUKOCYTE ESTERASE,URINE NEGATIVE (NEGATIVE); NITRITE,URINE NEGATIVE (NEGATIVE); PROTEIN,URINE NEGATIVE (NEGATIVE); URINE SPECIFIC GRAVITY 1.025
[2019-05-02 17:15] LABS: ABSOLUTE BASOPHILS # (AUTO) 0.1 10^3/uL (0.0-0.2); ABSOLUTE EOSINOPHILS # (AUTO) 0.2 10^3/uL (0.0-0.6); ABSOLUTE LYMPHOCYTES (AUTO) 3.1 10^3/uL (0.5-4.7); ABSOLUTE MONOCYTES (AUTO) 0.5 10^3/uL (0.1-1.4); ABSOLUTE NEUT (AUTO) 4.2 10^3/uL (1.7-8.2); BASOPHILS % (AUTO) 0.7 % (0-2); EOSINOPHILS % (AUTO) 2.9 % (0-6); HEMATOCRIT 42.6 % (37.9-51.0); HEMOGLOBIN 15.4 g/dL (13.5-17.0); LYMPHOCYTES % (AUTO) 38.1 % (13-45); MEAN CORPUSCULAR HEMOGLOBIN 32.2 pg (27.0-33.4); MEAN CORPUSCULAR HGB CONC 36.2 g/dL (32.0-36.0); MEAN CORPUSCULAR VOLUME 89 fl (80-97); MONOCYTES % (AUTO) 6.4 % (3-13); PLATELET COUNT 293 10^3/uL (150-450); RED BLOOD COUNT 4.79 10^6/uL (4.35-5.55); RED CELL DISTRIBUTION WIDTH 13.5 % (11.5-14.0); SEGMENTED NEUTROPHILS % (AUTO) 51.9 % (42-78); TOTAL CELLS COUNTED % (AUTO) 100 %; WHITE BLOOD COUNT 8.2 10^3/uL (4.0-10.5)
[2019-05-02 17:30] LABS: URINE AMPHETAMINES SCREEN NEGATIVE; URINE BARBITURATES SCREEN NEGATIVE; URINE BENZODIAZEPINES SCREEN NEGATIVE; URINE COCAINE SCREEN NEGATIVE; URINE METHADONE SCREEN NEGATIVE; URINE PHENCYCLIDINE SCREEN NEGATIVE
[2019-05-02 17:34] LABS: ALBUMIN 4.2 g/dL (3.5-5.0); ALKALINE PHOSPHATASE 52 U/L (38-126); ANION GAP 7 (5-19); ASPARTATE AMINO TRANSFERASE 48 U/L (17-59); BILIRUBIN,TOTAL 0.2 mg/dL (0.2-1.3); BLOOD UREA NITROGEN 17 mg/dL (7-20); CALCIUM 9.4 mg/dL (8.4-10.2); CARBON DIOXIDE 30 mmol/L (22-30); CHLORIDE 102 mmol/L (98-107); GLUCOSE 90 mg/dL (75-110); POTASSIUM 4.4 mmol/L (3.6-5.0); TOTAL PROTEIN 7.3 g/dL (6.3-8.2)
[2019-05-02 17:38] LABS: URINE MARIJUANA (THC) SCREEN UNCONFIRMED POSITIVE
--- NOTE | 2019-05-02 17:39 | RADIOLOGY REPORT (SQ) ---
EXAM DESCRIPTION: CT HEAD WITHOUT COMPLETED DATE/TIME: 05/02/2019 4:07 pm REASON FOR STUDY: confusion/headaches COMPARISON: None. TECHNIQUE: Axial images acquired through the brain without intravenous contrast. Images reviewed wi th bone, brain and subdural windows. Images stored on PACS. All CT scanners at this facility use dose modulation, iterative reconstruction, and/or weight based d osing when appropriate to reduce radiation dose to as low as reasonably achievable (ALARA). [facility]: Dose Right [facility]: CareDose [facility]: Dose Right [facility]: Teradose 4D [facility]: [facility] RADIATION DOSE: CT Rad equipment meets quality standard of care and radiation dose reduction techniq ues were employed. CTDIvol: 53.2 mGy. DLP: 1070 mGy-cm. mGy. LIMITATIONS: None. FINDINGS: VENTRICLES: Normal size and contour. CEREBRUM: No masses. No hemorrhage. No midline shift. No evidence for acute infarction. Normal gra y/white matter differentiation. No areas of low density in the white matter. CEREBELLUM: No masses. No hemorrhage. No alteration of density. No evidence for acute infarction. EXTRAAXIAL SPACES: No fluid collections. No masses. ORBITS AND GLOBE: No intra- or extraconal masses. Normal contour of globe without masses. CALVARIUM: No fracture. PARANASAL SINUSES: No fluid or mucosal thickening. SOFT TISSUES: No mass or hematoma. OTHER: No other significant finding. IMPRESSION: NORMAL BRAIN CT WITHOUT CONTRAST. EVIDENCE OF ACUTE STROKE: NO. COMMENT: Quality ID # [id number]: Final reports with documentation of one or more dose reduction techniques (e.g., Automated exposure control, adjustment of the mA and/or kV according to patient size, use of iterative reconstruction technique) TECHNICAL DOCUMENTATION: JOB ID: [id number] 2010 [employer]- All Rights Reserved Reading location - IP/workstation name: [email or web address]
[2019-05-02 18:21] LABS: VENOUS BLOOD BASE EXCESS 2.8 mmol/L; VENOUS BLOOD PCO2 61.9 mmHg (35-63); VENOUS BLOOD PH 7.32 (7.30-7.42)
--- NOTE | 2019-05-02 21:05 | ER Document Report ---
Entered by YIN BEJARANO SCRIBE 05/02/192046 Acting as scribe for:ALEJANDRO ESCOTO MD ED General - General Chief Complaint: Headache Stated Complaint: SEEING THINGS/LOSS OF FEELING IN HANDS/TIRED/HEADA Time Seen by Provider: 05/02/19 16:18 Mode of Arrival: Ambulatory Information source: Patient Notes: 28-year-old male presents to the emergency department complaining of headache that has been occurring for several weeks. Patient stated that he has been havi ng "massive" headaches and is always tired. Patient states that his headache is mild right now. Patient's mother added that patient has been losing his balance, has numbness in his fingers, and is paranoid for a couple of weeks. Patient states that he has been stressed due to work and that he has missed work due to a finger injury at work. TRAVEL OUTSIDE OF THE [place] IN LAST 30 DAYS: No - Related Data Allergies/Adverse Reactions: Penicillins Allergy (Verified 04/19/19 08:09) Past Medical History - General Information source: Patient - Social History Smoking Status: Current Every Day Smoker Cigarette use (# per day): Yes Chew tobacco use (# tins/day): No Lives with: Family Family History: Reviewed & Not Pertinent, Other - asthma Patient has suicidal ideation: No Patient has homicidal ideation: No Pulmonary Medical History: Reports: Hx Tuberculosis - carrier Neurological Medical History: Reports: Hx Migraine, Hx Seizures - at age of 4 GI Medical History: Reports: Hx Hepatitis - C Infectious Medical History: Reports: Hx Hepatitis - C Surgical Hx: Negative - Immunizations Immunizations up to date: Yes Hx Diphtheria, Pertussis, Tetanus Vaccination: Yes - pt states tetanus 2 years ago Review of Systems - Review of Systems Constitutional: No symptoms reported EENT: No symptoms reported Cardiovascular: No symptoms reported Respiratory: No symptoms reported Gastrointestinal: No symptoms reported Genitourinary: No symptoms reported Male Genitourinary: No symptoms reported Musculoskeletal: No symptoms reported Skin: No symptoms reported Hematologic/Lymphatic: No symptoms reported Neurological/Psychological: See HPI, Headaches, Numbness. denies: Hallu cinations -: Yes All other systems reviewed and negative Physical Exam - Vital signs Vitals: Temp Pulse Resp BP Pulse Ox 98.1 F 80 16 131/83 H 97 05/02/19 15:59 05/02/19 15:59 02/23/20 15:59 05/02/19 15:59 05/02/19 15:59 - Notes Notes: Physical Exam: General: Alert, appears well. HEENT: Normocephalic. Atraumatic. PERRL. Extraocular movements intact. Oropharynx clear. Neck: Supple. Non-tender. Respiratory: No respiratory distress. Clear and equal breath sounds bilaterally. Cardiovascular: Regular rate and rhythm. Abdominal: Normal Inspection. Non-tender. No distension. Normal Bowel Sounds. Back: No gross abnormalities. Extremities: Moves all four extremities. Upper extremities: Normal inspection. Normal ROM. Lower extremities: Normal inspection. No edema. Normal ROM. Neurological: Normal cognition. AAOx4. Normal speech. Psychological: Normal affect. Normal Mood. Skin: Warm. Dry. Normal color. Course - Vital Signs Vital signs: Temp Pulse Resp BP Pulse Ox 98.1 F 80 15 118/73 96 05/02/19 15:59 05/02/19 15:59 05/02/19 20:01 05/02/19 20:01 05/02/19 20:01 - Laboratory Result Diagrams: 05/02/19 16:35 05/02/19 16:35 Laboratory results interpreted by me: 05/02/19 05/02/19 05/02/19 16:35 16:35 16:35 MCHC 36.2 H Lactic Acid ALT 87 H Urine Urobilinogen 2.0 H 05/02/19 18:02 MCHC Lactic Acid < 0.5 L ALT Urine Urobilinogen 05/02/19 20:53 Laboratories completely normal no acute process noted in CBC CMP urinalysis urine drug screen - Diagnostic Test Radiology reviewed: Image reviewed, Reports reviewed Radiology results interpreted by me: 05/02/19 20:54 CT scan of head within normal limits no acute process no evidence of any stroke. Discharge - Discharge Clinical Impression: Migraine, Fatigue Condition: Stable Disposition: HOME, SELF-CARE Additional Instructions: Migraine Headache The physician feels that your symptoms are due to a migraine attack. Migraines are caused by changes in the blood vessels of the head. Arteries go into spasm, often causing warning symptoms that a headache may begin soon. As the spasm goes away, the vessels dilate and throb, causing the pounding pain of a migraine headache. Migraines often cause nausea and vomiting. The treatment of headaches varies with severity and cause of pain. Not all headaches need pain shots -- in fact, there is evidence that using narcotics for headaches may make them worse in the long run. The physician will determine the therapy that's in your best interest for this particular headache. Medications are available that may prevent migraines, or stop them as they first occur. If one medication is not helpful, try another. If migraines are frequent, be patient -- follow the doctor's recommendations. Call the physician if you are worsening, or if new symptoms arise. ED NIH Stroke Scale - NIH Stroke Scale *: 1. NIH scale should be completed with appropriate accompanying assessment tools. *: 2. The NIH should reflect what the patient is capable of doing and should not be coached by the clinician. 1a. Level of Consciousness: 0=Alert;keenly responsive -: 1=Drowsy -: 2=Obtunded -: 3=Coma/unresponsive or reflex to noxious stimuli. 1a. Responses: 0 1b. Orientation Questions: a. What month is it? -: b. How old are you? -: 0=Answers both questions correctly. -: 1=Answers one question correctly or patient is intubated or has orotracheal trauma. -: 2=Answers neither question correctly. 1b. Responses: 0 1c. Response to commands: a. Open and close eyes? -: b. Track Oiler and release hand? -: Credit is given despite weakness. Demonstration of task is permitted. Substitute command if hands cannot be used. -: 0=Performs both tasks correctly -: 1=Performs one task correctly -: 2=Performs neither task correctly 1c. Responses: 0 2. Gaze: Establish eye contact and instruct patient to "Follow my finger" -: 0=Normal -: 1=Partial gaze palsy. Gaze is abnormal in one or both eyes, but where forced deviation or total gaze paresis is not present. -: 2=Forced deviation or total gaze paresis. 3. Visual Adams: Sees fingers in all four quadrants. -: 0=No visual loss. -: 1=Partial hemianopsia. -: 2=Complete hemianopsia. -: 3=Bilateral hemianopsia (including Cortical blindness) 3. Responses: 0 4. Facial Movement: Instruct patient to: -: a. Show me your teeth -: b. Raise your eyebrows -: c. Close your eyes -: d. Smile -: 0=Normal symmetrical movement -: 1=Minor paralysis (flattened nasolabial fold, asymmetry on smiling). -: 2=Partial paralysis (total or near total paralysis of lower face). -: 3=Complete paralysis of upper and lower face 4. Responses: 0 5. Motor functions (left arm): Alternate sides and extend each arm with palms down (90 degrees if sitting or 45 degrees for supine). -: 0=No drift;limb holds for full 10 seconds. -: 1=Drift; limb holds but drifts down before full 10 seconds, but does not hit bed. -: 2=Some effort against gravity; limb cannot get to or maintain position. -: 3=No effort against gravity; limb falls. -: 4=No movement. -: UN=Amputation, joint fusion, explain in comments. 5. Responses (left arm): 0 5. Motor Functions (right arm): Alternate sides and extend each arm with palms down (90 degrees if sitting or 45 degrees for supine). -: 0=No drift;limb holds for full 10 seconds. -: 1=Drift; limb holds but drifts down before full 10 seconds, but does not hit bed. -: 2=Some effort against gravity; limb cannot get to or maintain position. -: 3=No effort against gravity; limb falls. -: 4=No movement. -: UN=Amputation, joint fusion, explain in comments. 5. Responses (right arm): 0 6. Motor Functions (left leg): With patient lying supine, alternate sides and extend each leg (30 degrees always while supine). -: 0=No drift, leg holds position for full 5 seconds -: 1=Drift; leg falls before full 5 seconds but does not hit bed. -: 2=Some effort against gravity, leg falls to bed but some effort against gr avity. -: 3=No effort against gravity, leg falls to bed immediately. -: 4=No movement. -: UN=Amputation, joint fusion; explain in comments. 6. Responses (left leg): 0 6. Motor Functions (right leg): With patient lying supine, alternate sides and extend each leg (30 degrees always while supine). -: 0=No drift, leg holds position for full 5 seconds -: 1=Drift; leg falls before full 5 seconds but does not hit bed. -: 2=Some effort against gravity, leg falls to bed but some effort against gravity. -: 3=No effort against gravity, leg falls to bed immediately. -: 4=No movement. -: UN=Amputation, joint fusion; explain in comments. 6. Responses (right leg): 0 7. Limb Ataxia: With eyes open instruct patient to: -: a. "Touch your finger to your nose". -: b. "Touch your heel to your sánchez" -: 0=Absent -: 1=Present in one limb. -: 2=Present in two limbs. -: UN=Amputation or joint fusion; explain in comments. 7. Responses: 0 8. Sensory: Test sensation using pinprick or noxious stimuli. Test as many body parts as possible. -: 0=Normal;no sensory loss -: 1=Mile to moderate sensory loss (patient feels pin prick but is less sharp on affected side). -: 2=Severe or total sensory loss. 8. Responses: 0 9. Best Language: Instruct patient to: -: a. "Describe what you see in this picture." -: b. "Name the items in this picture." -: c. "Read these sentences." -: 0=No aphasia, normal -: 1=Mild to moderate aphasia. -: 2=Severe aphasia -: 3=Mute, global aphasia, no usable speech or auditory comprehension. 9. Responses: 0 10. Articulation, Dysarthia: Instruct patient to: -: "Read these words" or "Repeat these words" -: 0=Normal -: 1=Mild to moderate; patient may slur some words but can be understood without difficulty. -: 2=Severe; patients speech so slurred as to be unintelligible in the absence of dysphasia. -: UN=Intubated or other physical barrier, explain in comments. 10. Responses: 0 11. Extinction or inattention: 0=No abnormality -: 1= Visual, tactile, auditory, spatial, or personal inattention or extinction to bilateral simulation in one or the sensory modalities. -: 2=Profound skinny-inattention or skinny-inattention to more than one modality; does not recognize own hand. 11. Responses: 0 Total Score: 0 I personally performed the services described in the documentation, reviewed and edited the documentation which was dictated to the scribe in my presence, and it accurately records my words and actions.
[2019-05-02 21:25] VITALS: BP 126/96
--- NOTE | 2019-05-02 23:15 | EKG REPORT ---
SEVERITY:- NORMAL ECG - SINUS RHYTHM : Confirmed by: Josey Ramos 02-May-2019 23:14:02
== END 2019-05-02 21:24 | disposition home or self-care (01) ==
LOC: ER 15:19
DX: G43.909 Migraine, unspecified, not intractable, without status migrainosus (principal); R20.0 Anesthesia of skin; R53.83 Other fatigue; F17.210 Nicotine dependence, cigarettes, uncomplicated; Z88.0 Allergy status to penicillin
CPT/HCPCS: 36415; 70450; 80053; 80307; 81001; 82803; 83605; 85025; 87040; 93005; 93010; 99284

== ENCOUNTER 2019-08-05 13:41 | Emergency (ER) | payer SELFPAY ==
[2019-08-05 14:00] VITALS: BP 129/83
== END 2019-08-05 14:25 | disposition left against medical advice (07) ==
LOC: ER 13:41
DX: Z53.21 Procedure and treatment not carried out due to patient leaving prior to being seen by health care provider (principal)